=== PATIENT | male | born 1945 | race Caucasian/White ===

== ENCOUNTER 2022-03-22 12:50 | Outpatient (RCR) | payer MEDICARE, SELFPAY ==
[2022-03-22 15:06] LABS: Basophils Absolute Auto 0.07 K/uL (0.00-0.30); Basophils Percent Auto 1.1 % (0.0-3.0); Eosinophils Absolute Auto 0.11 K/uL (0.00-0.50); Eosinophils Percent Auto 1.7 % (0.0-7.0); Hematocrit 42.7 % (37.0-53.0); Hemoglobin* 13.4 gm/dL (13.5-17.5); Lymphocytes Percent Auto 17.4 % (20-44); Mean Corpuscular HGB Conc 31 gm/dL (32-36); Mean Corpuscular Hemoglobin 29 pg (26-34); Mean Corpuscular Volume 93 fL (80-100); Monocytes Percent Auto 11.8 % (0.0-11.0); Neutrophils Absolute Auto 4.38 K/uL (1.7-7.0); Platelet Count* 212 K/uL (140-440); RDW Coefficient of Variation % 13.1 % (11.5-15.5); Red Blood Count 4.59 m/uL (4.30-5.90); White Blood Count* 6.44 K/uL (4.50-11.00)
[2022-03-22 15:13] LABS: Chloride* 105 mmol/L (96-114); Sodium* 139 mmol/L (135-149)
[2022-03-22 15:14] LABS: Potassium* 5.1 mmol/L (3.6-5.1)
[2022-03-22 15:16] LABS: Bilirubin Total* 1.8 mg/dL (0.1-1.5); Carbon Dioxide* 30 mmol/L (20-32); Estimated Glomerular Filt Rate 78 ml/min
[2022-03-22 15:17] LABS: Alanine Aminotransferase* 16 U/L (4-50); Alkaline Phosphatase* 103 U/L (40-150); Aspartate Amino Transferase* 28 U/L (12-35); Blood Urea Nitrogen* 21 mg/dL (7-30); Calcium* 9.5 mg/dL (8.4-10.6); Glucose* 99 mg/dL (60-115); Total Protein* 6.7 g/dL (6.0-8.3)
[2022-03-22 15:30] LABS: C Reactive Protein* < 0.5 mg/dL (0.5-1.0)
[2022-03-22 15:33] LABS: Slide Review Reflex No
[2022-03-22 15:38] LABS: Albumin* 4.1 g/dL (3.3-5.0)
[2022-03-22 16:21] LABS: Erythrocyte SedimentationRate* 5 mm/hr (2-15)
== END 2023-03-08 23:00 | disposition home or self-care (01) ==
LOC: NPINS 12:50
PROVIDERS: Visit Provider Internal Medicine Rheumatology
DX: M33.90 Dermatopolymyositis, unspecified, organ involvement unspecified (principal); Z79.899 Other long term (current) drug therapy; G63 Polyneuropathy in diseases classified elsewhere
CPT/HCPCS: 80053; 85025; 85651; 86140

== ENCOUNTER 2023-04-04 13:54 | Outpatient (REF) | payer MEDICARE, SELFPAY ==
--- OUTSIDE RECORDS SUMMARY | 2023-04-04 13:59 | XMS_ITS | Continuity of Care Document ---
Author Name Unknown Organization [facility] Address [address] [place] [address] Phone Care Team Providers Care Shell Fisherman Name Role Phone Aleta FOLEY, Phani Unavailable Unavailable Allergies, Adverse Reactions, Alerts Substance Reaction Status Criticality No Known Allergies Active No Inform ation Medications Medication Instructions Dosage Effective Dates (start - stop) Status Comments mycophenolate mofetil 500 mg tablet take 2 Tablet by oral route 2 times every day 1000 MG - Active CARVEDILOL 12.5 MG TABLET TAKE 1 TABLET BY MOUTH TWICE A DAY WITH FOOD - Active atorvastatin 20 mg tablet take 1 tablet by oral route every day 20 MG - Active telmisartan 80 mg tablet take 1 tablet by oral route every day 80 MG - Active multivitamin capsule take 1 capsule by oral route every day - Active mycophenolate mofetil 500 mg tablet take 4 Tablet by oral route every day 2000 MG - No Longer Active Problems Condition Type Effective Dates (start - stop) Clini tripp Status Comments No Known Problems Procedures Procedure Date CARDIOVASCULAR STRESS TEST OFFICE/OUTPATIENT VISIT, EST ECHO COMPLETE W/DPLR & CF OFFICE/OUTPATIENT VISIT, EST CARDIOVASCULAR STRESS TEST OFFICE/OUTPATIENT VISIT, EST OFFICE/OUTPATIENT VISIT, EST CARDIOVASCULAR STRESS TEST OFFICE/OUTPATIENT VISIT, EST OFFICE/OUTPATIENT VISIT NEW ELECTROCARDIOGRAM, COMPLETE ECHO COMPLETE W/DPLR & CF Advance Directives Directive Yes / No Effective Date File Name No Information Encounters Encounter Description Practice Location Reason(s) For Visit Diagnoses Date Provider Providers Copied on Encounter OFFICE/OUTPA TIENT VISIT, EST [facility], [address], [place], [address], [place] tel: [phone] [facility] 1 CAD (chief complaint) Coronary artery disease involving venet[place] coronary artery of venetie heart without angina pectorisEssent ial (primary) hypertensionHy perlipidemia, unspecifiedBod y mass index [BMI] 28.0-28.9, adult 3 Aleta Jeronimo. [address], [facility], [place], [place], [id number] , [place]. tel: [phone] Specialist: Yanet Martinez MD, [address] [facility], [place], [address]. tel:[phone] Provider: Soraya Casey MD, [address], [place], [address]. tel:[phone] [facility], [address], [place], [address], [place] tel: [phone] [facility] 1 No Information 3 Aleta Jeronimo. [address], [facility], [place], [place], [id number] , [place]. 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 [address], [facility], [place], [place], [id number] , [place]. tel: [phone] Specialist: Yanet Martinez MD, [address] [facility], [place], [address]. tel:[phone] Provider: Phani Adames, [address] [facility], [place], [address]. tel:[phone] [facility], [address], [place], [address], [place] tel: [phone] [facility] 1 No Information 2 Aleta Jeronimo. [address], [facility], [place], [place], [id number] , [place]. tel: [phone] OFFICE/OUTPA TIENT VISIT, EST [facility], [address], [place], [address], [place] tel: [phone] [facility] CAD (chief complaint)Hyp ertension (chief complaint) Coronary artery disease involving [place] coronary artery of ven[place] heart without angina pectorisEssent ial (primary) hypertensionHy perlipidemia, unspecifiedBod y mass index [BMI] 27.0-27.9, adult 2 Aleta Jeronimo. [address], [facility], [place], [place], [id number] , [place]. tel: [phone] Specialist: Yanet Martinez MD, [address], [place], [address]. tel:[phone] Provider: Soraya Casey MD, [address], [place], [address]. tel:[phone] OFFICE/OUTPA TIENT VISIT, EST [facility], [address], [place], [address], [place] tel: [phone] [facility] 1 Hypertension (chief complaint) Essential (primary) hypertensionHy perlipidemia, unspecifiedCor onary artery disease involving venetie coronary artery of venetie heart without angina pectoris 1 Aleta Jeronimo. [address], [facility], [place], [place], [id number] , [place]. tel:[phone] Specialist: Yanet Martinez MD, [address], [place], [address]. tel:[phone] Provider: Soraya Casey MD, [address], [place], [address]. tel:[phone] OFFICE/OUTPA TIENT VISIT, EST [facility], [address], [place], [address], [place] tel:[phone] [facility] 1 Hypertension (chief complaint) Essential (primary) hypertensionDy slipidemia Feb-2 0-202 0 Aleta Jeronimo. [address], [facility], [place], [place], [id number] , [place]. tel: [phone] Specialist: Yanet Martinez MD, [address], [place], [address]. tel:[phone] Provider: Pam Tanner MD, [address], [place], [address]. tel:[phone] OFFICE/OUTPA TIENT VISIT, EST [facility], [address], [place], [address], [place] tel: [phone] [facility] 1 Hypertension (chief complaint) Essential hypertensionDy slipidemia b-0 7-201 9 Aleta Jeronimo. [address], [facility], [place], [place], [id number] , [place]. tel: [phone] Specialist: Yanet Martinez MD, [address], [place], [address]. tel:[phone] Provider: Yanet Martinez MD, [address], [place], [address]. tel:[phone] OFFICE/OUTPA TIENT VISIT NEW [facility], [address], [place], [address], [place] tel: [phone] [facility] 1 Hypertension (chief complaint) Essential hypertensionDy slipidemia 9 Aleta Jeronimo. [address], [facility], [place], [place], [id number] , [place]. tel: [phone] Referring Provider: Pam Tanner MD, [address], [place], [address]. tel:[phone] [facility], [address], [place], [address], [place] tel: [phone] [facility] 1 Dermatopolymyo sitis, unsp, organ involvement unspecified 8 Bryan Renner. [address], [facility], [place], [place], [id number] , [place]. tel: [phone] Referring Provider: Yanet Martinez MD, [address], [place], [address]. tel:[phone] Family History Family Member Type Diagnosis Age At Onset Father Problem (finding) bypass surgery Payers Payer name Insurance type Covered alliance party ID Authorfaviana tisherie(s) Medicare Part B MB [id number] [facility] CI [id number] Social History Type Description Quantity Date Captured Comments Alcohol Use Details No Caffeine Use Details No Tobacco Use Status Current non-smoker Smoking Status Never smoker Non-Smoking Tobacco Use Details : No Details Available : No Details Available Sex Male Vital Signs Date / Time: Height Weight BMI Pulse Rate Blood Pressure Temperature Respiratory Rate Body Surface Area Head Circumference Head Circ. Percentile Wt./Bala. Percentile BMI percentile Pulse Ox Inhaled Ox 9:40 AM 72.00 in 96.162 kg (212.00 lbs) 28.7 5 kg/m eter (2) 60 /min 125/77 mm[Hg] 2.21 meter(2) 98 % Chief Complaint And Reason For Visit From encounter dated '11/01/2022 10:00'. CAD (chief complaint) Reason For Referral Reason For Referral No Information Plan Of Treatment Date Type Action Status Appointment Chu Gomes BOOKED Patient Education CARVEDILOL 12.5 MG TABL ET completed Patient Education CARVEDILOL 12.5 MG TABL ET completed Patient Education atorvastatin 20 mg tabl et completed Patient Education High Blood Pressure: Af ter Your Visit completed Patient Education High Blood Pressure: Af ter Your Visit completed Patient Education High Blood Pressure: Af ter Your Visit completed History Of Present Illness Encounter Date Complaint History Of Prese nt Illness CAD CAD Hypertension Hypertension Hypertension Hypertension Hypertension Functional Status Date Functional Assessmen t No Information Instructions Date Instruction Additional Infor mation Giving encouragement to exercise Related to Body mass index [BMI] 28.0-28.9, adult Giving encouragement to exercise Related to Body mass index [BMI] 27.0-27.9, adult Assessments Type Assessment Date assessment Coronary artery dise ase involving venetie coronary artery of venetie heart without angina pectoris assessment Essential (primary) hypertension assessment Hyperlipidemia, unspecified assessment Body mass index [BMI] 28.0-28.9, adult Patient Care Teams Name Effective Dates (start - stop) Status Members No Information
[2023-04-04 14:08] LABS: Basophils Absolute Auto 0.06 K/uL (0.00-0.30); Eosinophils Percent Auto 1.6 % (0.0-7.0); Hematocrit 43.4 % (37.0-53.0); Lymphocytes Percent Auto 18.7 % (20-44); Mean Corpuscular HGB Conc 32 gm/dL (32-36); Mean Corpuscular Hemoglobin 30 pg (26-34); Mean Corpuscular Volume 93 fL (80-100); Monocytes Percent Auto 10.4 % (0.0-11.0); Neutrophils Absolute Auto 4.19 K/uL (1.7-7.0); Neutrophils Percent Auto 68.3 % (42.0-72.0); Platelet Count* 204 K/uL (140-440); Red Blood Count 4.68 m/uL (4.30-5.90); White Blood Count* 6.14 K/uL (4.50-11.00)
[2023-04-04 14:09] LABS: Slide Review Reflex No
[2023-04-04 14:42] LABS: Chloride* 101 mmol/L (96-114)
[2023-04-04 14:43] LABS: Potassium* 4.2 mmol/L (3.6-5.1); Sodium* 139 mmol/L (135-149)
[2023-04-04 14:45] LABS: Aspartate Amino Transferase* 30 U/L (12-35); Bilirubin Total* 1.4 mg/dL (0.1-1.5); Carbon Dioxide* 31 mmol/L (20-32); Estimated Glomerular Filt Rate 78 ml/min
[2023-04-04 14:46] LABS: Alanine Aminotransferase* 21 U/L (4-50); Alkaline Phosphatase* 95 U/L (40-150); Blood Urea Nitrogen* 22 mg/dL (7-30); Calcium* 9.2 mg/dL (8.4-10.6); Glucose* 91 mg/dL (60-115); Total Protein* 6.9 g/dL (6.0-8.3)
== END 2023-04-04 13:55 | disposition home or self-care (01) ==
LOC: NPINS 13:54
PROVIDERS: Visit Provider Internal Medicine Rheumatology
DX: Z79.899 Other long term (current) drug therapy (principal); M33.90 Dermatopolymyositis, unspecified, organ involvement unspecified; M17.11 Unilateral primary osteoarthritis, right knee
CPT/HCPCS: 80053; 85025

== ENCOUNTER 2024-03-26 13:28 | Outpatient (REF) | payer MEDICARE, SELFPAY ==
--- OUTSIDE RECORDS SUMMARY | 2024-03-26 13:33 | XMS_ITS | Continuity of Care Document ---
Author Organization [facility] Address [address] [place] [address] Phone Care Team Providers Care Pediatric Nephrologist Name Role Phone Aleta FOLEY, Phani Unavailable Unavailable Allergies, Adverse Reactions, Alerts Substance Reaction Status Criticality No Known Allergies Active No Inform ation Medications Medication Instructions Dosage Effective Dates (start - stop) Status Comments gabapentin 300 mg capsule take 1 capsule by oral route 3 times every day 300 MG - Active CARVEDILOL 12.5 MG TABLET TAKE 1 TABLET BY MOUTH TWICE A DAY WITH FOOD - Active ATORVASTATIN 20 MG TABLET TAKE 1 TABLET BY MOUTH EVERY DAY - Active mycophenolate mofetil 500 mg tablet take 2 Tablet by oral route 2 times every day 1000 MG - Active telmisartan 80 mg tablet take 1 tablet by oral route every day 80 MG - Active multivitamin capsule take 1 capsule by oral route every day - Active Problems Condition Type Effective Dates (start - stop) Clini tripp Status Comments No Known Problems Procedures Procedure Date OFFICE/OUTPATIENT VISIT, EST CARDIOVASCULAR STRESS TEST OFFICE/OUTPATIENT VISIT, EST ECHO [...] Copied on Encounter OFFICE/OUTPA TIENT VISIT, EST [facility], [address], [place], [address], [place] tel: [phone] [facility] 1 CAD (chief complaint) Coronary artery disease involving [place] coronary artery of [place] heart without angina pectorisEssent ial (primary) hypertensionHy perlipidemia, unspecifiedBod y mass index [BMI] 27.0-27.9, adult 4 Aleta Jeronimo. [address], [facility], [place], [place], [id number] , [place]. tel: [phone] Specialist: Yanet Martinez MD, [address], [place], [address]. tel:[phone] Provider: Soraya Casey MD, [address], [place], [address]. tel:[phone] [facility], [address], [place], [address], [place] tel: [phone] [facility] 1 No Information 3 Aleta Jeronimo. [address], [facility], [place], [place], [id number] , [place]. tel: [phone] [facility], [address], [place], [address], [place] tel: [phone] [facility] 1 No Information 3 Aleta Jeronimo. [address], [facility], [place], [place], [id number] , [place]. tel: [phone] OFFICE/OUTPA TIENT VISIT, EST [facility], [address], [place], [address], [place] tel:[phone] [facility] 1 CAD (chief complaint) Coronary artery disease involving [place] coronary artery of [place] heart without angina pectorisEssent ial (primary) hypertensionHy perlipidemia, unspecifiedBod y mass index [BMI] 28.0-28.9, adult Oct- 3 Aleta Jeronimo. [address], [facility], [place], [place], [address] , [place]. tel:[phone] Specialist: Yanet Martinez MD, [address], [place], [address]. tel:[phone] Provider: Soraya Casey MD, [address], [place], [address]. tel:[phone] [facility], [address], [place], [address], [place] tel: [phone] [facility] 1 Athscl heart disease of [place] coronary artery w/o ang pctrs 2 Aleta Jeronimo. [address], [facility], [place], [place], [id number] , [place]. tel:[phone] Specialist: Yanet Martinez MD, [address], [place], [address]. tel:[phone] Provider: Phani River MD E, [address] [facility], [place], [address]. tel:[phone] OFFICE/OUTPA TIENT VISIT, EST [facility], [address], [place], [address], [place] tel:[phone] [facility] CAD (chief complaint)Hyp ertension (chief complaint) Coronary artery disease involving [place] coronary artery of [place] heart without angina pectorisEssent ial (primary) hypertensionHy perlipidemia, unspecifiedBod y mass index [BMI] 27.0-27.9, adult 2 Aleta Jeronimo. [address], [facility], [place], [place], [id number] , [place]. tel:[phone] Specialist: Yanet Martinez MD, [address], [place], [address]. tel:[phone] Provider: Soraya Casey MD, [address], [place], [address]. tel:[phone] OFFICE/OUTPA TIENT VISIT, EST [facility], [address], [place], [address], [place] tel:[phone] [facility] 1 Hypertension (chief complaint) Essential (primary) hypertensionHy perlipidemia, unspecifiedCor onary artery disease involving [place] coronary artery of [place] heart without angina pectoris 1 Aleta Jeronimo. [address], [facility], [place], [place], [id number] , [place]. tel:[phone] Specialist: Yanet Martinez MD, [address], [place], [address]. tel:[phone] Provider: Soraya Casey MD, [address], [place], [address]. tel:[phone] OFFICE/OUTPA TIENT VISIT, EST [facility], [address], [place], [address], [place] tel:[phone] [facility] 1 Hypertension (chief complaint) Essential (primary) hypertensionDy slipidemia 0 Aleta Jeronimo. [address], [facility], [place], [place], [id number] , [place]. tel:[phone] Specialist: Yanet Martinez MD, [address], [place], [address]. tel:[phone] Provider: Pam Tanner MD, [address], [place], [address]. tel:[phone] OFFICE/OUTPA TIENT VISIT, EST [facility], [address], [place], [address], [place] tel: [phone] [facility] 1 Hypertension (chief complaint) Essential hypertensionDy slipidemia 9 Aleta Jeronimo. [address], [facility], [place], [place], [id number] , [place]. tel:[phone] Specialist: Yanet Martinez MD, [address], [place], [address]. tel:[phone] Provider: Yanet Martinez MD, [address], [place], [address]. tel:[phone] OFFICE/OUTPA TIENT VISIT NEW [facility], [address], [place], [address], [place] tel: [phone] [facility] 1 Hypertension (chief complaint) Essential hypertensionDy slipidemia 9 Aleta Jeronimo. [address], [facility], [place], [place], [id number] , [place]. tel:[phone] Referring Provider: Pam Tanner MD, [address] [facility], [place], [address]. tel:[phone] [facility], [address], [place], [address], [place] tel: [phone] [facility] 1 Dermatopolymyo sitis, unsp, organ involvement unspecified 8 Bryan Renner. [address], [facility], [place], [place], [id number] , [place]. tel:[phone] Referring Provider: Yanet Martinez MD, [address], [place], [address]. tel:[phone] Family History Family Member Type Diagnosis Age At Onset Father Problem (finding) bypass surgery Payers Payer name Insurance type Covered republican ID Authoriza tion(s) Medicare Part B MB [id number] [facility] CI [id number] Social History Type Description Quantity Date Captured [...] Percentile BMI percentile Pulse Ox Inhaled Ox 9:53 AM 72.00 in 92.986 kg (205.00 lbs) 27.8 0 kg/m eter (2) 62 /min 132/82 mm[Hg] 2.17 meter(2) Chief Complaint And Reason For Visit From encounter dated '10/31/2023 10:00'. CAD (chief complaint) Reason For Referral [...] History Of Prese nt Illness CAD CAD CAD Hypertension Hypertension Hypertension Hypertension Hypertension Functional Status Date Functional Assessmen t No Information Instructions Date Instruction Additional Infor mation Giving encouragement to exercise Related to Body mass index [BMI] 27.0-27.9, adult Giving encouragement to exercise Related to Body mass index [BMI] 28.0-28.9, adult Giving encouragement to exercise Related to Body mass index [BMI] 27.0-27.9, adult Assessments Type Assessment Date assessment Coronary artery dise ase involving [place] coronary artery of [place] heart without angina pectoris assessment Essential (primary) hypertension assessment Hyperlipidemia, unspecified assessment Body mass index [BMI] 27.0-27.9, adult Patient Care Teams Name Effective Dates (start - stop) Status Members No Information
--- OUTSIDE RECORDS SUMMARY | 2024-03-26 13:33 | XMS_ITS | Clinical Summary ---
Author Organization [facility] Address [address] [place] [address] Care Team Providers Care Hydrochloric Area Supervisor Name Role Phone Clinician, Not Found MD Primary Care Provider Un available Source Comments You are receiving this document as you are listed as the primary care provider,follow-up provider, or the patient has been referred to you for consultation.This is in compliance with the Medicare and[facility] EHR Incentive Program,which states Providers who transition their patient to another setting of careor provider of care or refers their patient to another provider of care shouldprovide summary care record for each transition of care or referral. [facility] Allergies No known active allergies Medications Medication Sig Dispensed Refills Start Date End Date Status diclofenac (AKA VOLTAREN) 75 MG enteric coated tabletIndications:L BP (low back pain) Take 1 tablet by mouth 2 times daily. Take with food 30 tablet 2 05/05/2014 Active Additional Information Patient not taking.Reported on 05/12/2021 atorvastatin (LIPITOR) 20 MG tablet Take 20 mg by mouth daily. 04/17/2021 Active carvedilol (COREG) 12.5 MG tablet Take 12.5 mg by mouth two times a day with meals. 04/01/2021 Active mycophenolate (CELLCEPT) 500 MG tablet Take 1,000 mg by mouth two times a day. 04/01/2021 Active telmisartan (MICARDIS) 80 MG tablet Take 80 mg by mouth daily. 03/04/2021 Active Active Problems Problem Noted Date Diagnosed Date Low back pain 05/05/2014 Overview: LBP (low back pain) Essential hypertension 02/13/2003 Overview: Hypertension Immunizations Name Administration Dates Next Due Td 01/02/1991 Social History Tobacco Use Types Packs/Day Years Used Date Smoking Tobacco: Never Sex and Gender Information Value Date Recorded Sex Assigned at Not on file Gender Identity Not on file Sexual Orientation Not on file Last Filed Vital Signs Vital Sign Reading Time Taken Comments Blood Pressure - - Pulse - - Temperature 36.1 ??C (96.9 ??F) 05/12/2021 9:28 AM CD T Respiratory Rate - - Oxygen Saturation - - Inhaled Oxygen Concentration - - Weight 97.5 kg (215 lb) 05/12/2021 9:28 AM CDT Height 182.9 cm (6') 05/12/2021 9:28 AM CDT Body Mass Index 29.16 05/12/2021 9:28 AM CDT Plan of Treatment Health Maintenance Due Date Last Done Comments Hep C Screening (Preventive Services) 1945 Medicare Annual Wellness Visit 1945 DTaP/Tdap/Td (1 - Tdap) 01/03/1991 01/02/1991 Pneumococcal 65+ Yrs (1 - PCV) 2010 COVID-19 Vaccine (2 - 2022- season) 2023 05/04/2021 Influenza (#1) 2024 Cholesterol Discontinued 01/19/1998 Zoster/Shingles Completed 03/31/2019, 01/25/2019 HepA Aged Out No longer eligi ble based on patient's age to complete this topic HepB Aged Out No longer eligi ble based on patient's age to complete this topic Hib Aged Out No longer eligi ble based on patient's age to complete this topic IPV (Polio) Aged Out No longer eligi ble based on patient's age to complete this topic MCV4 Aged Out No longer eligi ble based on patient's age to complete this topic Procedures Procedure Name Priority Date/Time Associated Diagnosis Comments CHOLESTEROL (TOTAL) Routine 01/19/1998 1 0:25 AM CDT from Last 3 Months or Most Recently Relevant to Health Maintenance Results * Cholesterol (Total) (01/19/1998 10:25 AM CDT) Cholesterol 158 125 - 199 mg/dL HP CONVERSION 01/19/1998 10:2 5 AM CDT Cain Saravia MD LAB_1 HP CONVERSION from Last 3 Months or Most Recently Relevant to Health Maintenance Care Teams Hydrochloric Area Supervisor Relationship Specialty Start Date End Date Clinician, Not Found, [place] [address] PCP - General 05/06/14
--- OUTSIDE RECORDS SUMMARY | 2024-03-26 13:33 | XMS_ITS | Clinical Summary ---
Author Organization [facility] Address [address] [place] [address] Phone Care Team Providers Care Travel Pta Name Role Phone Unavailable Primary Care Provider Unavailabl e Immunizations Name Administration Dates Next Due Influenza, High Dose Seasona l, Preservative Free 06/12/2017 Influenza, seasonal, injectable 06/24/2019,06/09,06/09/2017 Pneumococcal Conjugate PCV 13 10/12/2014 Pneumococcal Polysaccharide PPV23 10/14/2013 Zoster, Recombinant 03/24/2019 Zoster, live 10/17/2011 Family History Medical History Relation Name Comments Diabetes Father Heart disease Father Heart disease Mother Relation Name Status Comments Father Mother Social History Tobacco Use Types Packs/Day Years Used Date Smoking Tobacco: Never Sex and Gender Information Value Date Recorded Sex Assigned at Not on file Gender Identity Not on file Sexual Orientation Not on file Last Filed Vital Signs Vital Sign Reading Time Taken Comments Blood Pressure 130/80 11/05/2019 10:07 AM [facility] Pulse - - Temperature - - Respiratory Rate - - Oxygen Saturation - - Inhaled Oxygen Concentration - - Weight 102 kg (224 lb 12.8 oz) 11/05/2019 10:07 AM [facility] Height 182.9 cm (6') 11/05/2019 10:07 AM [facility] Body Mass Index 30.49 11/05/2019 10:07 AM [facility] Plan of Treatment Not on file
--- OUTSIDE RECORDS SUMMARY | 2024-03-26 13:33 | XMS_ITS | Clinical Summary ---
Author Organization [facility] Address [address] [place] [address] Care Team Providers Care Senior Database Programmer Name Role Phone Soraya Casey MD Primary Care Provider Allergies No known active allergies Medications Medication Sig Dispensed Refills Start Date End Date Status carvedilol (COREG) 25 MG tablet Active Telmisartan (MICARDIS) 80 MG tablet 12/12/2013 Active celecoxib (CELEBREX) 200 MG capsuleIndications:Hernandez ateral primary osteoarthritis of knee Take 1 capsule by mouth twice a day. 60 capsule 3 09/27/2023 Active Active Problems Problem Noted Date Diagnosed Date Hyperlipidemia 06/18/2022 Dermatomyositis 07/29/2015 Low back pain 05/05/2014 Overview: LBP (low back pain) Cataract of both eyes 07/01/2013 Hypertension 03/18/1970 Immunizations Name Administration Dates Next Due Covid-19 SARS CoV-2(Moderna) 11/16/2020,10/17/19 21 Family History Medical History Relation Comments Diabetes Father Relation Status Comments Father Social History Tobacco Use Types Packs/Day Years Used Date Smoking Tobacco: Never Smokeless Tobacco: Never Tobacco Cessation:Counseling Given: Not Answered Utilities Answer Date Recorded In the past 12 months has th e electric, gas, oil, or water company threatened to shut off services in your home? No 09/19/2023 Humiliation, Afraid, Rape, and Kick questionnair e Answer Date Recorded Within the last year, have y ou been afraid of your partner or ex-partner? No 09/19/2023 Within the last year, have y ou been humiliated or emotionally abused in other ways by your partner or ex-partner? No Within the last year, have y ou been kicked, hit, slapped, or otherwise physically hurt by your partner or ex-partner? No 09/19/2023 Within the last year, have y ou been raped or forced to have any kind of sexual activity by your partner or ex-partner? No 09/19/2023 Social Connection and Isolation Panel [NHANES] A nswer Date Recorded In a typical week, how many times do you talk on the phone with family, friends, or neighbors? Twice a week 09/19/2023 How often do you get togethe r with friends or relatives? Twice a week 09/19/2023 How often do you attend spiritism or denominational serv ices? Patient declined 09/19/2023 Do you belong to any clubs o r organizations such as spiritism groups, unions, fraternal or athletic groups, or school groups? No 09/19/2023 How often do you attend meet ings of the clubs or organizations you belong to? Never 09/19/2023 Are you , , di vorced, , never , or living with a partner? 09/19/2023 AUDIT-C Answer Date Recorded Q1: How often do you have a drink containing alc ohol? Monthly or less 09/19/2023 Q2: How many drinks containi ng alcohol do you have on a typical day when you are drinking? 1 or 2 09/19/2023 Q3: How often do you have si x or more drinks on one occasion? Never 09/19/2023 Overall Financial Resource Strain (CARDIA) Answe r Date Recorded How hard is it for you to pa y for the very basics like food, housing, medical care, and heating? Not hard at all 09/19/2023 [facility] of Occupat ional Health - Occupational Stress Questionnaire Answer Date Recorded Do you feel stress - tense, restless, nervous, or anxious, or unable to sleep at night because your mind is troubled all the time - these days? Not at all 09/19/2023 Exercise Vital Sign Answer Date Recorde d On average, how many days pe r week do you engage in moderate to strenuous exercise (like a brisk walk)? 7 days 09/19/2023 On average, how many minutes do you engage in exercise at this level? 50 min 09/19/2023 Hunger Vital Sign Answer Date Recorded Within the past 12 months, y ou worried that your food would run out before you got the money to buy more. Never true 09/19/19 24 Within the past 12 months, t he food you bought just didn't last and you didn't have money to get more. Never true 09/19/2023 PRAPARE - Transportation Answer Date Re corded In the past 12 months, has l ack of transportation kept you from medical appointments or from getting medications? No 09/09 In the past 12 months, has l ack of transportation kept you from meetings, work, or from getting things needed for daily living? No 09/19/2023 Housing Stability Vital Sign Answer Toney e Recorded In the last 12 months, was t here a time when you were not able to pay the mortgage or rent on time? No 09/19/2023 In the last 12 months, how many places have you lived? 2 09/19/2023 In the last 12 months, was t here a time when you did not have a steady place to sleep or slept in a halfway (including now)? No 09/19/2023 Domestic Violence Screen Answer Date Re corded Physical Abuse Risk Unknown 10/27/2023 Verbal Abuse Risk Unknown 10/27/2023 Sex and Gender Information Value Date Recorded Sex Assigned at Not on file Gender Identity Not on file Sexual Orientation Not on file Last Filed Vital Signs Vital Sign Reading Time Taken Comments Blood Pressure - - Pulse - - Temperature - - Respiratory Rate - - Oxygen Saturation - - Inhaled Oxygen Concentration - - Weight 94.8 kg (209 lb) 09/26/2023 9:35 AM [facility] Height 182.9 cm (6') 09/26/2023 9:35 AM [facility] Body Mass Index 28.35 09/26/2023 9:35 AM [facility] Plan of Treatment Health Maintenance Due Date Last Done Comments Screening for Future Fall Risk 2010 Zoster (3 of 3) 05/19/2019 03/24/2019, 0204/2012, 12/31/2007 COVID-19 Vaccine ( season) 2023 06/18/2023, 06/18/2023, 06/01/2022, Additional history exists Depression Screening 09/09/2023 Influenza (#1) 2024 06/06/2023, 05/11, 05/08/2022, Additional history exists Hepatitis A Aged Out 11/22/2011, 06/21/2011 No lo nger eligible based on patient's age to complete this topic Pneumococcal 65+ Completed 07/15/2015, 11/2014, 10/14/2013, Additional history exists Hepatitis B Aged Out No longer eligi ble based on patient's age to complete this topic Care Teams Senior Database Programmer Relationship Specialty Start Date End Date Soraya Casey MD [address] [place] [address] PCP - General 09/26/23
--- OUTSIDE RECORDS SUMMARY | 2024-03-26 13:33 | XMS_ITS | Referral Summary ---
Author Organization [facility] Address [address] [place] [address] Phone Care Team Providers Care Airplane First Officer Name Role Phone Unavailable Primary Care Provider Unavailabl e Immunizations Name Administration Dates Next Due Influenza, High Dose Seasona l, Preservative Free 06/12/2017 Influenza, seasonal, injectable 06/24/2019,06/09,06/09/2017 Pneumococcal Conjugate PCV 13 10/12/2014 Pneumococcal Polysaccharide PPV23 10/14/2013 Zoster, Recombinant 03/24/2019 Zoster, live 10/17/2011 Social History Tobacco Use Types Packs/Day Years Used Date Smoking Tobacco: Never Sex and Gender Information Value Date Recorded Sex Assigned at Not on file Gender Identity Not on file Sexual Orientation Not on file Last Filed Vital Signs Vital Sign Reading Time Taken Comments Blood Pressure 130/80 11/05/2019 10:07 AM [facility] Pulse - - Temperature - - Respiratory Rate - - Oxygen Saturation - - Inhaled Oxygen Concentration - - Weight 102 kg (224 lb 12.8 oz) 11/05/2019 10:07 AM [facility] Height 182.9 cm (6') 11/05/2019 10:07 AM [facility] Body Mass Index 30.49 11/05/2019 10:07 AM [facility] Plan of Treatment Not on file
--- OUTSIDE RECORDS SUMMARY | 2024-03-26 13:33 | XMS_ITS | Referral Summary ---
Author Organization [facility] Address [address] [place] [address] Care Team Providers Care Collet Driller Name Role Phone Soraya Casey MD Primary [...] Next Due Covid-19 SARS CoV-2(Moderna) 11/16/2020,10/17/19 21 Social History Tobacco Use Types Packs/Day Years [...] week 09/19/2023 How often do you attend christianity or hindu serv ices? Patient declined 09/19/2023 Do you belong to any clubs o r organizations such as christianity groups, unions, fraternal or athletic groups, or [...] and heating? Not hard at all 09/19/2023 [facility] of Occupat ional Health - Occupational Stress [...] place to sleep or slept in a longterm (including now)? No 09/19/2023 Domestic Violence Screen [...] 94.8 kg (209 lb) 09/26/2023 9:35 AM [facility] Height 182.9 cm (6') 09/26/2023 9:35 AM [facility] Body Mass Index 28.35 09/26/2023 9:35 AM [facility] Plan of Treatment Not on file Care Teams Collet Driller Relationship Specialty Start Date End Date Soraya Casey MD [address] [place], [place] [id number] PCP - General 09/26/23
[2024-03-26 13:54] LABS: Basophils Absolute Auto 0.07 K/uL (0.00-0.30); Basophils Percent Auto 1.1 % (0.0-3.0); Eosinophils Absolute Auto 0.16 K/uL (0.00-0.50); Eosinophils Percent Auto 2.4 % (0.0-7.0); Hematocrit 42.5 % (37.0-53.0); Hemoglobin* 13.5 gm/dL (13.5-17.5); Immature Granulocytes Abs Auto 0.01 K/uL (0.00-0.30); Immature Granulocytes Pct Auto 0.2 %; Lymphocytes Absolute Auto 1.33 K/uL (0.90-2.90); Mean Corpuscular HGB Conc 32 gm/dL (32-36); Mean Corpuscular Hemoglobin 30 pg (26-34); Mean Corpuscular Volume 94 fL (80-100); Monocytes Percent Auto 11.3 % (0.0-11.0); Neutrophils Absolute Auto 4.34 K/uL (1.7-7.0); Platelet Count* 201 K/uL (140-440); RDW Coefficient of Variation % 13.3 % (11.5-15.5); Red Blood Count 4.51 m/uL (4.30-5.90); White Blood Count* 6.66 K/uL (4.50-11.00)
[2024-03-26 13:58] LABS: Slide Review Reflex No
[2024-03-26 14:00] LABS: Albumin* 4.1 g/dL (3.3-5.0); Chloride* 107 mmol/L (96-114); Sodium* 139 mmol/L (135-149)
[2024-03-26 14:01] LABS: Potassium* 4.4 mmol/L (3.6-5.1)
[2024-03-26 14:03] LABS: Alanine Aminotransferase* 18 U/L (4-50); Alkaline Phosphatase* 107 U/L (40-150); Anion Gap 6 mEq/L (7-15); Aspartate Amino Transferase* 31 U/L (12-35); Bilirubin Total* 1.2 mg/dL (0.1-1.5); Blood Urea Nitrogen* 25 mg/dL (7-30); Carbon Dioxide* 26 mmol/L (20-32); Estimated Glomerular Filt Rate 77 ml/min; Total Protein* 6.8 g/dL (6.0-8.3)
[2024-03-26 14:04] LABS: Calcium* 8.9 mg/dL (8.4-10.6); Glucose* 89 mg/dL (60-115)
[2024-03-26 14:06] LABS: C Reactive Protein* < 0.5 mg/dL (0.5-1.0)
[2024-03-26 14:36] LABS: Erythrocyte SedimentationRate* 7 mm/hr (2-15)
== END 2024-03-26 13:29 | disposition home or self-care (01) ==
LOC: NPINS 13:28
PROVIDERS: Visit Provider Internal Medicine Rheumatology
DX: M33.90 Dermatopolymyositis, unspecified, organ involvement unspecified (principal); Z79.899 Other long term (current) drug therapy
CPT/HCPCS: 80053; 85025; 85651; 86140